=== PATIENT | female | born 1960 | race Two or more races ===

== ENCOUNTER 2019-10-09 09:47 | Emergency (ER) | payer OTHER ==
[2019-10-09 09:58] VITALS: BP 122/75; PULSE 95; TEMP 98.4; BMI 43.2
[2019-10-09] MEDS ORDERED: DIPHTH,PERTUSS(ACELL),TET 0.5 ML DISP.SYRIN IM ONE ×2 (09:58→11:27)
--- NOTE | 2019-10-09 09:58 | PDOC ---
Rapid Medical Evaluation Chief Complaint: Bite Time Seen by Provider: 10/09/19 09:56 Medical Evaluation: 10/09/19 09:56 Patient is 59F with no medical problems here today with a dog bite. Dog is known , house dog of neighbor. Patient has puncture wounds to left medial arm. Vitals normal. Last tetanus about 10 years. Patient to fast track. Discharge Disposition - Diagnosis Dog bite - Discharge Dispostion Condition at time of disposition: Stable - Referrals - Patient Instructions - Post Discharge Activity
[2019-10-09] MEDS ORDERED: ACETAMINOPHEN 500 MG TABLET (FP) PO ONE (12:25)
[2019-10-09] MEDS ORDERED: ACETAMINOPHEN 500 MG TABLET (FP) ONE (12:28)
--- NOTE | 2019-10-09 12:35 | PDOC ---
History of Present Illness - General Chief Complaint: Bite Stated Complaint: DOG ATTACK Time Seen by Provider: 10/09/19 09:56 History Source: Patient Exam Limitations: No Limitations - History of Present Illness Initial Comments: 10/09/19 12:28 59-year-old female history of CVA on aspirin presents complaining of dog bite sustained to left arm and left breast today while walking her dog at approximately 8:30 AM. Patient reports she has seen the studio owner of the dog in the past as he lives in the area. States the dog was not on a leash, the dog proceeded to run towards her dog and as she protected her dog the pitbull who is approximately 40 to 50 pounds attacked her. The studio owner of the pitbull reports that all vaccines are up-to-date. The dog can be observed. Patient last tetanus status unknown. Patient also reports mild headache, denies head strike, neck pain, chest pain, shortness of breath, back pain or any other complaints. ROS: GENERAL/CONSTITUTIONAL: No fever, chills, weakness, dizziness HEAD, EYES, EARS, NOSE AND THROAT: No changes in vision, No ear pain or discharge, No sore throat CARDIOVASCULAR: No chest pain RESPIRATORY: No shortness of breath or cough GASTROINTESTINAL: No pain, nausea, vomiting, diarrhea or constipation GENITOURINARY: No dysuria MUSCULOSKELETAL: No neck or back pain SKIN: No rash NEUROLOGIC: No headache, vertigo, loss of consciousness, or loss of sensation PE: GENERAL: well-appearing, NAD HEAD: NCAT EYES: Pupils equal, round and reactive to light, sclera anicteric, conjunctiva clear ENT: pharynx: no erythema, no exudate, uvula midline NECK: supple CHEST: nontender RESP: clear, no w/r/r CARDIO: rrr, no m/g/r ABD: +BS, soft, nontender, non distended BACK: no midline spinal ttp, no CVAT EXTREMITIES: Normal range of motion, no edema NEUROLOGICAL: Normal speech, normal gait SKIN: one superficial abrasion to left breast approximately 1.5 cm, warm, one superficial abrasion to left upper arm, one superficial laceration approximately 1.5 cm to left upper arm, abrasion to right knee, no active bleeding Is this a multiple visit Asthma Patient?: No Past History - Past Medical History Allergies/Adverse Reactions: Allergies Allergy/AdvReac Type Severity Reaction Status Date / Time No Known Allergies Allergy Verified 10/09/19 09:58 Home Medications: Ambulatory Orders Amoxicillin/Potassium Clav [Augmentin 875-125 Tablet] 1 each PO BID #14 tablet 10/09/19 Aspirin 81 mg PO DAILY 10/09/19 Atorvastatin Ca [Lipitor] 20 mg PO HS 10/09/19 Cetirizine HCl [Zyrtec -] 10 mg PO DAILY 10/09/19 Duloxetine HCl [Cymbalta] 30 mg PO DAILY 10/09/19 Ferrous Sulfate [Iron] 650 mg PO DAILY 10/09/19 Omeprazole 20 mg PO DAILY 10/09/19 - Psycho Social/Smoking Cessation Hx Smoking History: Never smoked Have you smoked in the past 12 months: No Information on smoking cessation initiated: No Hx Alcohol Use: No Drug/Substance Use Hx: No *Physical Exam - Vital Signs Last Vital Signs Temp Pulse Resp BP Pulse Ox 98.4 F 95 H 16 122/75 98 10/09/19 09:56 10/09/19 09:56 10/09/19 09:56 10/09/19 09:56 10/09/19 09:56 Procedures - Laceration/Wound Repair Left Upper Arm Wound Length: to 2.5 cm (1.5) Wound Explored: clean Wound's Depth, Shape: superficial Irrigated w/ Saline: Yes Wound Repaired With: Steri-strips Sterile Dressing Applied: Yes ED Treatment Course - Medications Given in the ED: ED Medications Discontinued Medications Generic Name Dose Route Start Last Admin Trade Name Freq PRN Reason Stop Dose Admin Diphtheria/Tetanus/Acell Pertussis 0.5 ml 10/09/19 09:58 10/09/19 11:28 Boostrix - IM 10/09/19 09:59 0.5 ml .ONCE ONE Administration Medical Decision Making - Medical Decision Making 10/09/19 12:35 59-year-old female with history of CVA on aspirin presents complaining of dog bite sustained to left breast and left upper arm. She reports while she was walking her dog another people who was not on a leash attempted to attack her dog. When she protected her dog the pitbull attacked her. Unknown tetanus status. All abrasions and one laceration irrigated and cleaned Laceration was loosely approximated using one Steri-Strip Sterile dressing applied P.o. acetaminophen ordered for mild headache Patient is neurologically intact Dog bite reported to [facility] Tetanus provided Patient declines rabies vaccination at this time Strict return precautions provided Discharge - Discharge Information Problems reviewed: Yes Clinical Impression/Diagnosis: Dog bite Condition: Stable Disposition: HOME - Admission No - Follow up/Referral Referrals: Simran Way MD [Primary Care Provider] - - Patient Discharge Instructions Additional Instructions: Keep area clean and dry 5 bacitracin to area twice a day Take Augmentin 875 mg 1 tablet twice a day for 7 days If fever, chills, worsening pain, headache, nausea, vomiting return to ED immediately Follow-up with your physician this week - Post Discharge Activity Work/Back to School Note: Back to Work
== END 2019-10-09 12:52 | disposition home or self-care (01) ==
LOC: JERFT 09:47
PROC: 3E0234Z Introduction of Serum, Toxoid and Vaccine into Muscle, Percutaneous Approach (ICD-10-PCS; principal; 2019-10-09)
DX: S40.8 Other superficial injuries of upper arm (principal); S20.172A Other superficial bite of breast, left breast, initial encounter; W54.0XXA Bitten by dog, initial encounter; Y93.K1 Activity, walking an animal; Y92.480 Sidewalk as the place of occurrence of the external cause; Y99.8 Other external cause status; Z86.73 Personal history of transient ischemic attack (TIA), and cerebral infarction without residual deficits
CPT/HCPCS: 90471; 90715; 99282-25

== ENCOUNTER 2022-08-05 04:11 | Day surgery (SDC) | payer BC, OTHER ==
[2022-08-04 18:15] VITALS: BMI 32.8
[2022-08-05] MEDS ORDERED: LIDOCAINE HCL/PF 2% SDV 5ML VIAL ONE (11:33)
[2022-08-05] MEDS ORDERED: PROPOFOL 20 ML ONE (11:34)
[2022-08-05] MEDS ORDERED: GLYCOPYRROLATE 0.2 MG/1 ML VIAL ONE ×2 (11:39→12:58)
[2022-08-05] MEDS ORDERED: ROCURONIUM BROMIDE 50 MG/5 ML SYRINGE ONE (11:45)
[2022-08-05] MEDS ORDERED: OXYMETAZOLINE 0.05% NASAL SOLUTION 15 ML BOTTLE NS ONE (11:45)
[2022-08-05] MEDS ORDERED: MIDAZOLAM HCL 2 MG/2 ML SINGLE DOSE VIAL ONE (11:47)
[2022-08-05] MEDS ORDERED: ceFAZolin SODIUM 1 GM VIAL ONE (11:58)
[2022-08-05] MEDS ORDERED: ONDANSETRON 4 MG/2 ML VIAL IVPUSH PRN (12:05)
[2022-08-05] MEDS ORDERED: LACTATED RINGERS SOLUTION 1,000 ML IV SCH (12:15)
[2022-08-05] MEDS ORDERED: DEXAMETHASONE SOD PHOSPHATE 4 MG/1 ML VIAL ONE (12:21)
[2022-08-05] MEDS ORDERED: LIDOCAINE HCL/EPINEPHRINE/PF 10 ML VIAL NR ONE ×2 (12:37→12:53)
[2022-08-05] MEDS ORDERED: ceFAZolin SODIUM 1 GM VIAL IVPB ONE (12:45)
[2022-08-05] MEDS ORDERED: LIDOCAINE 1%/EPI 1:100000 (20 ML MULTI DOSE VIAL) IJ ONE (12:53)
[2022-08-05] MEDS ORDERED: ONDANSETRON 4 MG/2 ML VIAL ONE (12:58)
[2022-08-05] MEDS ORDERED: NEOSTIGMINE METHYLSULFATE 0.5 MG/ML - 10 ML MDV ONE (12:58)
[2022-08-05] MEDS ORDERED: LABETALOL HCL 5 MG/1 ML (100MG/20 ML VIAL) IVPUSH ONE (13:37)
[2022-08-05] MEDS ORDERED: ACETAMINOPHEN 1000 MG/100 ML BAG IVPB ONE (15:26)
[2022-08-05 17:09] VITALS: RESP 18; TEMP 98
[2022-08-05 17:59] VITALS: BP 122/67; PULSE 74
== END 2022-08-05 18:02 | disposition home or self-care (01) ==
LOC: JASU-SURG 04:11
PROVIDERS: ATTEND Otolaryngology
PROC: 0DJ08ZZ Inspection of Upper Intestinal Tract, Via Natural or Artificial Opening Endoscopic (ICD-10-PCS; principal; 2022-08-05 12:00)
DX: G47.33 Obstructive sleep apnea (adult) (pediatric) (principal); R09.81 Nasal congestion
CPT/HCPCS: 94760

== ENCOUNTER 2023-09-09 14:25 | Emergency (ER) | payer BC, OTHER ==
[2023-09-09 14:31] VITALS: BP 120/66; PULSE 92; RESP 18; TEMP 99.2; BMI 37.8
[2023-09-09] MEDS ORDERED: SODIUM CHLORIDE 0.9% 500 ML INFUS.BAG IV ONE (15:19)
[2023-09-09] MEDS ORDERED: ONDANSETRON 4 MG/2 ML VIAL IVPUSH ONE (15:19)
[2023-09-09] MEDS ORDERED: ACETAMINOPHEN 1000 MG/100 ML BAG IVPB ONE (15:19)
[2023-09-09 16:01] LABS: BASO % 0.2 % (0-2.0); EOS % 0.7 % (0-4.5); HEMATOCRIT 43.2 % (32.4-45.2); HEMOGLOBIN 14.5 GM/dL (10.7-15.3); LYMPH % 12.2 % (8-40); MCH 29.6 pg (25.7-33.7); MCHC 33.5 g/dl (32.0-36.0); MEAN CELL VOLUME 88.3 fl (80-96); MEAN PLT VOLUME 6.4 fl (7.5-11.1); MONO % 8.9 % (3.8-10.2); PLATELET COUNT 284 10^3/uL (134-434); RBC 4.89 M/mm3 (3.60-5.2); RDW 13.6 % (11.6-15.6)
[2023-09-09] MEDS ORDERED: ACETAMINOPHEN INJECTION 100 ML IVPB ONE (16:05)
[2023-09-09] MEDS ORDERED: ONDANSETRON 4 MG/2 ML VIAL ONE (16:05)
[2023-09-09 16:13] LABS: INR 1.06 (0.83-1.09); PROTHROMBIN TIME (PATIENT) 12.3 SEC (9.7-13.0)
[2023-09-09 16:16] LABS: ACTIVATED PTT 27.6 SECONDS (25.2-36.5)
[2023-09-09 16:20] LABS: POTASSIUM 3.6 mmol/L (3.5-5.1)
[2023-09-09 16:22] LABS: CALCIUM 9.1 mg/dL (8.5-10.1)
[2023-09-09 16:23] LABS: ALBUMIN 3.5 g/dl (3.4-5.0); BLOOD UREA NITROGEN 7.3 mg/dL (7-18)
[2023-09-09 16:25] LABS: CREATININE 0.7 mg/dL (0.55-1.3)
[2023-09-09 16:27] LABS: BILIRUBIN,TOTAL 0.7 mg/dL (0.2-1); TOT PROT 7.3 g/dl (6.4-8.2)
[2023-09-09] MEDS ORDERED: KETOROLAC TROMETHAMINE 15 MG/ML VIAL IVPUSH ONE (16:35)
[2023-09-09] MEDS ORDERED: KETOROLAC TROMETHAMINE 15 MG/ML VIAL ONE (16:38)
== END 2023-09-09 17:39 | disposition home or self-care (01) ==
LOC: JERFT 14:25
PROC: 3E033NZ Introduction of Analgesics, Hypnotics, Sedatives into Peripheral Vein, Percutaneous Approach (ICD-10-PCS; principal; 2023-09-09)
PROC: 3E0333Z Introduction of Anti-inflammatory into Peripheral Vein, Percutaneous Approach (ICD-10-PCS; 2023-09-09)
PROC: 3E033GC Introduction of Other Therapeutic Substance into Peripheral Vein, Percutaneous Approach (ICD-10-PCS; 2023-09-09)
DX: R07.89 Other chest pain (principal); R06.02 Shortness of breath; R11.0 Nausea; M79.10 Myalgia, unspecified site; R05.9 Cough, unspecified; Z20.822 Contact with and (suspected) exposure to COVID-19
CPT/HCPCS: 0241U-QW; 36415; 71046-TC-FY; 80053; 82550; 84484; 85025; 85379; 85610; 85730; 93005; 93010; 99285-25